=== PATIENT | female | born 1945 | race Caucasian/White ===

== ENCOUNTER 2017-11-29 21:30 | Observation (INO) | payer MEDICARE, OTHER ==
[2017-11-29] MEDS: ASPIRIN 81 MG TAB PO (21:41)
[2017-11-29 21:55] LABS: ADD MAN DIFF? NO
[2017-11-29 21:57] LABS: BASOPHILS % 0.5 % (0.0-2.0); EOSINOPHILS # 0.1 10^3/ul (0.0-0.5); EOSINOPHILS % 1.6 % (0.0-7.0); HEMATOCRIT 35.7 % (37.0-47.0); HEMOGLOBIN 11.6 g/dl (12.0-16.0); LYMPHOCYTES # 2.7 10^3/ul (0.8-2.9); LYMPHOCYTES % 33.5 % (15.0-51.0); MEAN CORPUSCULAR HGB CONC 32.5 g/dl (32.0-37.0); MEAN CORPUSCULAR VOLUME 98.6 fl (82.0-101.0); MONOCYTE # 0.9 10^3/ul (0.3-0.9); MONOCYTES % 11.9 % (0.0-11.0); NEUTROPHIL # 4.1 10^3/ul (1.6-7.5); NEUTROPHILS % 51.9 % (39.0-77.0); PLATELET COUNT 167 10^3/UL (140-415); RED BLOOD COUNT 3.62 10^6/ul (4.20-5.40); RED CELL DISTRIBUTION WIDTH 13.2 % (11.5-14.5)
[2017-11-29 21:57] LABS: WHITE BLOOD COUNT 7.9 10^3/ul (4.8-10.8)
[2017-11-29 22:15] LABS: ANION GAP 17 (8-16); BLOOD UREA NITROGEN 22 mg/dl (7-20); CALCIUM 9.2 mg/dl (8.4-10.2); CARBON DIOXIDE 22 mmol/L (21-31); CHLORIDE 108 mmol/L (97-110); CREATININE 1.03 mg/dl (0.44-1.00); GLUCOSE 112 mg/dl (70-220); POTASSIUM 4.7 mmol/L (3.5-5.1); SODIUM 142 mmol/L (135-144)
[2017-11-29 22:23] LABS: D-DIMER 653.79 ng/ml (<460)
[2017-11-29 22:30] LABS: TROPONIN-I < 0.012 ng/ml (0.00-0.12)
[2017-11-30] MEDS ORDERED: LORAZEPAM 0.5 MG TAB PO
[2017-11-30] MEDS ORDERED: HYDROmorphONE 0.5 MG/0.5 ML SYG IV
[2017-11-30] MEDS ORDERED: DOCUSATE SODIUM 100 MG CAP PO ×2
[2017-11-30] MEDS ORDERED: HYDROCODONE/APAP (5/325) TAB PO
[2017-11-30] MEDS ORDERED: ZOLPIDEM 5 MG TAB PO
[2017-11-30] MEDS ORDERED: NITROGLYCERIN (SL) 0.4 MG TAB SL
[2017-11-30] MEDS ORDERED: MAGNESIUM HYDROXIDE 30ML CUP PO
[2017-11-30] MEDS ORDERED: ONDANSETRON 4 MG INJ IV ×2
[2017-11-30] MEDS ORDERED: NACL 0.9% 3 ML SYG IV
[2017-11-30] MEDS ORDERED: ACETAMINOPHEN 325 MG TAB PO ×2
[2017-11-30] MEDS ORDERED: ALBUTEROL/IPRATROPIUM (NEB) 3 ML AMP HHN (00:30)
[2017-11-30] MEDS: SOD CHLORIDE 0.9% 100 ML (00:55)
[2017-11-30] MEDS: IOHEXOL 100 ML (00:55)
[2017-11-30] MEDS: IOHEXOL 350MG/ML 50 ML BTL (00:55)
[2017-11-30] MEDS: ALBUTEROL/IPRATROPIUM (NEB) 3 ML AMP HHN ×6 (01:11→20:29)
[2017-11-30] MEDS: PANTOPRAZOLE (EC) 40 MG TAB PO (06:30)
[2017-11-30 07:23] LABS: ADD MAN DIFF? NO
[2017-11-30 07:26] LABS: BASOPHILS % 0.6 % (0.0-2.0); EOSINOPHILS # 0.1 10^3/ul (0.0-0.5); EOSINOPHILS % 1.9 % (0.0-7.0); HEMATOCRIT 31.9 % (37.0-47.0); HEMOGLOBIN 10.5 g/dl (12.0-16.0); LYMPHOCYTES % 31.4 % (15.0-51.0); MEAN CORPUSCULAR HEMOGLOBIN 32.3 pg (29.0-33.0); MEAN CORPUSCULAR HGB CONC 32.9 g/dl (32.0-37.0); MEAN CORPUSCULAR VOLUME 98.2 fl (82.0-101.0); MEAN PLATELET VOLUME 11.1 fl (7.4-10.4); MONOCYTE # 0.7 10^3/ul (0.3-0.9); MONOCYTES % 11.5 % (0.0-11.0); NEUTROPHIL # 3.5 10^3/ul (1.6-7.5); NEUTROPHILS % 54.1 % (39.0-77.0); PLATELET COUNT 158 10^3/UL (140-415); RED BLOOD COUNT 3.25 10^6/ul (4.20-5.40); RED CELL DISTRIBUTION WIDTH 13.3 % (11.5-14.5)
[2017-11-30 07:26] LABS: WHITE BLOOD COUNT 6.5 10^3/ul (4.8-10.8)
[2017-11-30 07:49] LABS: CREATINE KINASE 22 IU/L (23-200)
[2017-11-30 07:50] LABS: CHOL/HDL RATIO 2.4 RATIO; HDL CHOLESTEROL 45 mg/dl (33-92); LDL CHOLESTEROL,CALCULATED 28 mg/dl; TRIGLYCERIDES 193 mg/dl (0-149)
[2017-11-30 07:50] LABS: CHOLESTEROL 112 mg/dl (100-200)
[2017-11-30 07:52] LABS: ALANINE AMINOTRANSFERASE 20 IU/L (13-69); ALBUMIN/GLOBULIN RATIO 1.03; ALKALINE PHOSPHATASE 61 IU/L (42-121); ANION GAP 13 (8-16); ASPARTATE AMINO TRANSFERASE 10 IU/L (15-46); BLOOD UREA NITROGEN 21 mg/dl (7-20); CARBON DIOXIDE 26 mmol/L (21-31); CHLORIDE 109 mmol/L (97-110); GLUCOSE 75 mg/dl (70-220); POTASSIUM 4.2 mmol/L (3.5-5.1); SODIUM 144 mmol/L (135-144); TOTAL PROTEIN 5.9 g/dl (6.1-8.1)
[2017-11-30 08:00] LABS: CK-MB 0.23 ng/ml (0.0-2.4)
[2017-11-30 08:00] LABS: HEMOGLOBIN A1C 5.3 % (0-5.9)
[2017-11-30 08:01] LABS: TROPONIN-I < 0.012 ng/ml (0.00-0.12)
[2017-11-30] MEDS: ASPIRIN 81 MG TAB PO (08:16)
[2017-11-30] MEDS: AMLODIPINE 5 MG TAB PO (08:17)
[2017-11-30] MEDS: VALSARTAN 160 MG TAB PO (08:18)
[2017-11-30] MEDS: ENOXAPARIN 40 MG/0.4 ML SYG SC (08:25)
[2017-11-30] MEDS: LEVOTHYROXINE 150 MCG TAB PO (09:50)
[2017-11-30] MEDS: GABAPENTIN 400 MG CAP PO ×3 (09:50→21:49)
[2017-11-30] MEDS: CARBIDOPA/LEVODOPA (25/100) TAB PO ×3 (09:51→21:49)
[2017-11-30] MEDS: FENOFIBRATE 145 MG TAB PO (09:51)
[2017-11-30] MEDS: DIVALPROEX (EC) 500 MG TAB PO ×2 (09:51→21:49)
[2017-11-30] MEDS: CHOLESTYRAMINE 4 GM PACKET PO ×3 (09:52→21:49)
[2017-11-30] MEDS: ANASTROZOLE 1 MG TAB PO (10:28)
[2017-11-30 12:11] LABS: ADD UMIC NO; UR ASCORBIC ACID NEGATIVE (NEGATIVE); UR BILIRUBIN (Dip) NEGATIVE (NEGATIVE); UR BLOOD (Dip) NEGATIVE (NEGATIVE); UR CLARITY CLEAR (CLEAR); UR COLOR STRAW (YELLOW); UR GLUCOSE (Dip) NEGATIVE (NEGATIVE); UR KETONES (Dip) NEGATIVE (NEGATIVE); UR LEUKOCYTE ESTERASE (Dip) NEGATIVE Leu/ul (NEGATIVE); UR NITRITE (Dip) NEGATIVE (NEGATIVE); UR SPECIFIC GRAVITY (Dip) 1.021 (1.003-1.030); UR TOTAL PROTEIN (Dip) NEGATIVE (NEGATIVE); UR UROBILINOGEN (Dip) NEGATIVE (NEGATIVE)
[2017-11-30] MEDS: OXYBUTYNIN 5 MG TAB PO ×2 (12:45→21:49)
[2017-11-30] MEDS: FLUTICASONE 0.05% 16 GM NAS SPRAY NASAL (12:45)
[2017-11-30] MEDS: ARTIFICIAL TEARS 15 ML OPH BOTH EYES ×3 (12:46→21:49)
[2017-11-30 12:53] LABS: CREATINE KINASE 21 IU/L (23-200)
[2017-11-30 13:03] LABS: CK-MB < 0.22 ng/ml (0.0-2.4); TROPONIN-I < 0.012 ng/ml (0.00-0.12)
[2017-11-30] MEDS: ACETAMINOPHEN 325 MG TAB PO (16:11)
[2017-11-30] MEDS: RISPERIDONE 2 MG TAB PO (21:50)
[2017-12-01] MEDS: ALBUTEROL/IPRATROPIUM (NEB) 3 ML AMP HHN ×6 (01:27→20:44)
[2017-12-01] MEDS: PANTOPRAZOLE (EC) 40 MG TAB PO (06:22)
[2017-12-01] MEDS: LEVOTHYROXINE 137 MCG TAB PO (06:22)
[2017-12-01 07:51] LABS: RETICULOCYTE RBC 3.24
[2017-12-01 07:51] LABS: RETICULOCYTE COUNT # 0.045 X10^6 (0.020-0.110); RETICULOCYTE COUNT % 1.4 % (0.5-1.5)
[2017-12-01 08:17] LABS: IRON 64 ug/dl (35-150)
[2017-12-01 08:26] LABS: % IRON SATURATION 23 % SAT (22-52); TOTAL IRON BINDING CAPACITY 283 ug/dl (241-421)
[2017-12-01 08:32] LABS: OCCULT BLOOD STOOL NEGATIVE (NEGATIVE)
[2017-12-01] MEDS: GABAPENTIN 400 MG CAP PO ×3 (08:37→20:57)
[2017-12-01] MEDS: VALSARTAN 160 MG TAB PO (08:38)
[2017-12-01] MEDS: AMLODIPINE 5 MG TAB PO (08:38)
[2017-12-01] MEDS: FENOFIBRATE 145 MG TAB PO (08:42)
[2017-12-01] MEDS: ANASTROZOLE 1 MG TAB PO (08:42)
[2017-12-01] MEDS: DIVALPROEX (EC) 500 MG TAB PO ×2 (08:42→20:57)
[2017-12-01] MEDS: CARBIDOPA/LEVODOPA (25/100) TAB PO ×3 (08:43→20:57)
[2017-12-01] MEDS: OXYBUTYNIN 5 MG TAB PO ×3 (08:43→20:57)
[2017-12-01] MEDS: ASPIRIN 81 MG TAB PO (08:43)
[2017-12-01] MEDS: CHOLESTYRAMINE 4 GM PACKET PO ×3 (08:43→20:56)
[2017-12-01] MEDS: ENOXAPARIN 40 MG/0.4 ML SYG SC (08:44)
[2017-12-01] MEDS: FLUTICASONE 0.05% 16 GM NAS SPRAY NASAL (08:49)
[2017-12-01 09:48] LABS: FOLATE 4.5 ng/ml (2.8-20.0)
[2017-12-01] MEDS: ARTIFICIAL TEARS 15 ML OPH BOTH EYES ×4 (12:25→20:56)
[2017-12-01] MEDS: REGADENOSON 0.4 MG/5 ML SYG IV (16:00)
[2017-12-01] MEDS: REGADENOSON 0.4 MG/5 ML SYG (16:06)
[2017-12-01] MEDS: RISPERIDONE 2 MG TAB PO (20:57)
[2017-12-01] MEDS: MUPIROCIN 2% 22 GM OINT TOP (20:57)
[2017-12-02] MEDS: ALBUTEROL/IPRATROPIUM (NEB) 3 ML AMP HHN ×4 (00:51→12:28)
[2017-12-02] MEDS: PANTOPRAZOLE (EC) 40 MG TAB PO (06:07)
[2017-12-02] MEDS: LEVOTHYROXINE 112 MCG TAB PO (06:07)
[2017-12-02] MEDS: LEVOTHYROXINE 25 MCG TAB PO (06:07)
[2017-12-02] MEDS: ARTIFICIAL TEARS 15 ML OPH BOTH EYES ×2 (08:44→12:35)
[2017-12-02] MEDS: DIVALPROEX (EC) 500 MG TAB PO (08:45)
[2017-12-02] MEDS: OXYBUTYNIN 5 MG TAB PO ×2 (08:45→12:36)
[2017-12-02] MEDS: ENOXAPARIN 40 MG/0.4 ML SYG SC (08:45)
[2017-12-02] MEDS: CARBIDOPA/LEVODOPA (25/100) TAB PO ×2 (08:45→12:36)
[2017-12-02] MEDS: ASPIRIN 81 MG TAB PO (08:46)
[2017-12-02] MEDS: GABAPENTIN 400 MG CAP PO ×2 (08:46→12:36)
[2017-12-02] MEDS: ANASTROZOLE 1 MG TAB PO (08:47)
[2017-12-02] MEDS: FENOFIBRATE 145 MG TAB PO (08:48)
[2017-12-02] MEDS: MUPIROCIN 2% 22 GM OINT TOP (08:48)
[2017-12-02] MEDS: CHOLESTYRAMINE 4 GM PACKET PO ×2 (08:48→12:36)
[2017-12-02] MEDS: VALSARTAN 160 MG TAB PO (08:50)
[2017-12-02] MEDS: FLUTICASONE 0.05% 16 GM NAS SPRAY NASAL (08:50)
[2017-12-02] MEDS: AMLODIPINE 5 MG TAB PO (08:50)
[2017-12-03] MEDS ORDERED: LEVOTHYROXINE 137 MCG TAB PO (07:00)
== END 2017-12-02 17:22 ==
LOC: MS4 23:59 → E/R 21:30
DX: R07.9 Chest pain, unspecified (principal); E03.9 Hypothyroidism, unspecified; G20 Parkinson's disease; J44.9 Chronic obstructive pulmonary disease, unspecified; I11.0 Hypertensive heart disease with heart failure; I50.30 Unspecified diastolic (congestive) heart failure; E78.5 Hyperlipidemia, unspecified; E66.9 Obesity, unspecified; Z68.34 Body mass index [BMI] 34.0-34.9, adult; F32.9 Major depressive disorder, single episode, unspecified; M19.90 Unspecified osteoarthritis, unspecified site; R19.7 Diarrhea, unspecified; D64.9 Anemia, unspecified; N32.81 Overactive bladder; I44.7 Left bundle-branch block, unspecified; Z85.3 Personal history of malignant neoplasm of breast; Z87.891 Personal history of nicotine dependence; Z79.82 Long term (current) use of aspirin; Z88.6 Allergy status to analgesic agent; Z88.8 Allergy status to other drugs, medicaments and biological substances; Z87.440 Personal history of urinary (tract) infections; Z83.3 Family history of diabetes mellitus; Z80.0 Family history of malignant neoplasm of digestive organs
CPT/HCPCS: 36415; 71045; 71275; 78452; 80048; 80053; 80061; 81003; 82270; 82550; 82553; 82607; 82746; 83036; 83540; 84443; 84484; 85025; 85045; 85378; 87081; 87086; 93005; 93017; 93306; 94640; 94660; 94664; 99285-25; G0378

== ENCOUNTER 2019-05-10 17:16 | Inpatient (IN) | payer MEDICARE, OTHER ==
[2019-05-10 18:31] LABS: ADD MAN DIFF? NO
[2019-05-10 18:36] LABS: BASOPHILS % 0.3 % (0.0-2.0); EOSINOPHILS # 0.3 10^3/ul (0.0-0.5); EOSINOPHILS % 3.5 % (0.0-7.0); HEMATOCRIT 33.7 % (37.0-47.0); HEMOGLOBIN 10.9 g/dl (12.0-16.0); LYMPHOCYTES # 2.3 10^3/ul (0.8-2.9); LYMPHOCYTES % 23.7 % (15.0-51.0); MEAN CORPUSCULAR HGB CONC 32.3 g/dl (32.0-37.0); MEAN CORPUSCULAR VOLUME 98.8 fl (82.0-101.0); MONOCYTE # 1.3 10^3/ul (0.3-0.9); MONOCYTES % 13.6 % (0.0-11.0); NEUTROPHIL # 5.6 10^3/ul (1.6-7.5); NEUTROPHILS % 58.4 % (39.0-77.0); PLATELET COUNT 192 10^3/UL (140-415); RED BLOOD COUNT 3.41 10^6/ul (4.20-5.40); RED CELL DISTRIBUTION WIDTH 12.6 % (11.5-14.5)
[2019-05-10 18:36] LABS: WHITE BLOOD COUNT 9.5 10^3/ul (4.8-10.8)
[2019-05-10 18:54] LABS: INR 1.17; PT RATIO 1.2
[2019-05-10 18:55] LABS: ALANINE AMINOTRANSFERASE 9 IU/L (13-69); ALBUMIN 3.2 g/dl (3.3-4.9); ALBUMIN/GLOBULIN RATIO 0.94; ALKALINE PHOSPHATASE 48 IU/L (42-121); ANION GAP 9 (5-13); ASPARTATE AMINO TRANSFERASE 17 IU/L (15-46); BILIRUBIN,INDIRECT 0.4 mg/dl (0-1.1); BILIRUBIN,TOTAL 0.4 mg/dl (0.2-1.3); BLOOD UREA NITROGEN 27 mg/dl (7-20); CALCIUM 9.1 mg/dl (8.4-10.2); CARBON DIOXIDE 27 mmol/L (21-31); CHLORIDE 108 mmol/L (97-110); CREATININE 1.03 mg/dl (0.44-1.00); GLUCOSE 107 mg/dl (70-220); PARTIAL THROMBOPLASTIN TIME 27.9 Sec (23.0-35.0); POTASSIUM 3.7 mmol/L (3.5-5.1); SODIUM 144 mmol/L (135-144); TOTAL PROTEIN 6.6 g/dl (6.1-8.1)
[2019-05-10 19:51] LABS: VALPROATE 57 ug/ml (50-100)
[2019-05-10 20:10] LABS: ADD UMIC YES; UR ASCORBIC ACID NEGATIVE (NEGATIVE); UR BACTERIA FEW /HPF (NONE SEEN); UR BILIRUBIN (Dip) NEGATIVE (NEGATIVE); UR BLOOD (Dip) 2+ mg/dL (NEGATIVE); UR CLARITY CLOUDY (CLEAR); UR COLOR YELLOW (YELLOW); UR GLUCOSE (Dip) NEGATIVE (NEGATIVE); UR KETONES (Dip) NEGATIVE (NEGATIVE); UR LEUKOCYTE ESTERASE (Dip) 3+ Leu/ul (NEGATIVE); UR NITRITE (Dip) NEGATIVE (NEGATIVE); UR NONSQUAMOUS EPITHELIAL CELL 2 /HPF (NONE SEEN); UR RBC 2 /HPF (0-5); UR SPECIFIC GRAVITY (Dip) 1.013 (1.003-1.030); UR SQUAMOUS EPITHELIAL CELL MODERATE /HPF (FEW); UR TOTAL PROTEIN (Dip) NEGATIVE (NEGATIVE); UR TRANSITIONAL EPI CELL FEW /HPF (NONE SEEN); UR UROBILINOGEN (Dip) NEGATIVE (NEGATIVE); UR WBC 76 /HPF (0-5)
[2019-05-10] MEDS: PIPER-TAZO 3.375 GM IV (PMX) 100 ML IVPB (20:31)
[2019-05-10] MEDS: SOD CHLORIDE 0.9% 1,000 ML IV (20:31)
[2019-05-10 20:41] LABS: LACTIC ACID 1.1 mmol/L (0.5-2.0)
[2019-05-10 20:52] LABS: THYROID STIMULATING HORMONE 0.067 MIU/L (0.465-4.680); TROPONIN-I < 0.012 ng/ml (0.000-0.120)
[2019-05-10 22:38] LABS: LACTIC ACID 1.4 mmol/L (0.5-2.0)
[2019-05-11] MEDS ORDERED: MAGNESIUM HYDROXIDE 30ML CUP PO
[2019-05-11] MEDS ORDERED: NACL 0.9% 3 ML SYG IV
[2019-05-11] MEDS ORDERED: morphine 2 MG INJ IV
[2019-05-11] MEDS ORDERED: ONDANSETRON 4 MG INJ IV
[2019-05-11] MEDS ORDERED: HYDROCODONE/APAP (5/325) TAB PO
[2019-05-11] MEDS ORDERED: ACETAMINOPHEN 325 MG TAB PO
[2019-05-11] MEDS ORDERED: DOCUSATE SODIUM 100 MG CAP PO
[2019-05-11] MEDS: ZOLPIDEM 5 MG TAB PO (00:20)
[2019-05-11] MEDS: GUAIFENESIN/DM 5ML CUP PO ×6 (00:20→20:33)
[2019-05-11] MEDS: SOD CHLORIDE 0.9% 1,000 ML IV (00:20)
[2019-05-11] MEDS: PANTOPRAZOLE (EC) 40 MG TAB PO (05:07)
[2019-05-11] MEDS: PIPER-TAZO 3.375 GM IV (PMX) 100 ML IVPB ×3 (05:08→22:29)
[2019-05-11 05:21] LABS: ADD MAN DIFF? NO
[2019-05-11 05:24] LABS: BASOPHILS % 0.3 % (0.0-2.0); EOSINOPHILS # 0.4 10^3/ul (0.0-0.5); EOSINOPHILS % 5.5 % (0.0-7.0); HEMATOCRIT 33.6 % (37.0-47.0); HEMOGLOBIN 10.8 g/dl (12.0-16.0); LYMPHOCYTES # 1.7 10^3/ul (0.8-2.9); LYMPHOCYTES % 25.2 % (15.0-51.0); MEAN CORPUSCULAR HEMOGLOBIN 31.7 pg (29.0-33.0); MEAN CORPUSCULAR HGB CONC 32.1 g/dl (32.0-37.0); MEAN CORPUSCULAR VOLUME 98.5 fl (82.0-101.0); MONOCYTE # 0.8 10^3/ul (0.3-0.9); MONOCYTES % 11.4 % (0.0-11.0); NEUTROPHILS % 57.2 % (39.0-77.0); PLATELET COUNT 182 10^3/UL (140-415); RED BLOOD COUNT 3.41 10^6/ul (4.20-5.40); RED CELL DISTRIBUTION WIDTH 12.4 % (11.5-14.5)
[2019-05-11 05:24] LABS: WHITE BLOOD COUNT 6.9 10^3/ul (4.8-10.8)
[2019-05-11 05:34] LABS: HEMOGLOBIN A1C 5.1 % (0-5.9)
[2019-05-11] MEDS: LEVOTHYROXINE 100 MCG TAB PO (06:06)
[2019-05-11 06:39] LABS: ALANINE AMINOTRANSFERASE 12 IU/L (13-69); ALBUMIN 2.8 g/dl (3.3-4.9); ALBUMIN/GLOBULIN RATIO 0.87; ALKALINE PHOSPHATASE 42 IU/L (42-121); ANION GAP 5 (5-13); ASPARTATE AMINO TRANSFERASE 14 IU/L (15-46); BILIRUBIN,INDIRECT 0.3 mg/dl (0-1.1); BILIRUBIN,TOTAL 0.3 mg/dl (0.2-1.3); BLOOD UREA NITROGEN 24 mg/dl (7-20); CALCIUM 8.2 mg/dl (8.4-10.2); CARBON DIOXIDE 26 mmol/L (21-31); CHLORIDE 113 mmol/L (97-110); CREATININE 1.05 mg/dl (0.44-1.00); GLUCOSE 109 mg/dl (70-220); POTASSIUM 3.7 mmol/L (3.5-5.1); SODIUM 144 mmol/L (135-144)
[2019-05-11] MEDS ORDERED: PANTOPRAZOLE (EC) 40 MG TAB PO (07:00)
[2019-05-11] MEDS: PSYLLIUM 28% PACKET PO (08:31)
[2019-05-11] MEDS: DICLOFENAC SODIUM 1% GEL 100 GM TUBE TP ×3 (08:32→20:35)
[2019-05-11] MEDS: BALSAM PERU/CASTOR OIL 60 GM TUBE TOP ×2 (08:32→20:34)
[2019-05-11] MEDS: FERROUS SULFATE (EC) 325 MG TAB PO ×2 (08:33→20:34)
[2019-05-11] MEDS: FLUTICASONE 0.05% 16 GM NAS SPRAY NASAL (08:33)
[2019-05-11] MEDS: ASPIRIN 81 MG TAB PO (08:33)
[2019-05-11] MEDS: AMLODIPINE 5 MG TAB PO ×2 (08:34→20:33)
[2019-05-11] MEDS: CHOLECALCIFEROL 1,000 UNIT TAB PO (08:34)
[2019-05-11] MEDS: GABAPENTIN 400 MG CAP PO ×3 (08:34→20:34)
[2019-05-11] MEDS: DIVALPROEX (EC) 500 MG TAB PO ×2 (08:34→20:34)
[2019-05-11] MEDS: CARBIDOPA/LEVODOPA (25/100) TAB PO ×3 (08:34→20:34)
[2019-05-11] MEDS: FOLIC ACID 1 MG TAB PO (08:35)
[2019-05-11] MEDS: ENOXAPARIN 40 MG/0.4 ML SYG SC (08:47)
[2019-05-11] MEDS: ANASTROZOLE 1 MG TAB PO (10:51)
[2019-05-11] MEDS: MUPIROCIN 2% 22 GM OINT TOP ×2 (13:37→20:34)
[2019-05-11] MEDS: PRIMIDONE 50 MG TAB PO (20:34)
[2019-05-11] MEDS: RISPERIDONE 1 MG TAB PO (20:34)
[2019-05-12 05:15] LABS: ADD MAN DIFF? NO
[2019-05-12 05:19] LABS: WHITE BLOOD COUNT 5.1 10^3/ul (4.8-10.8)
[2019-05-12 05:19] LABS: BASOPHILS % 0.4 % (0.0-2.0); EOSINOPHILS # 0.5 10^3/ul (0.0-0.5); EOSINOPHILS % 9.1 % (0.0-7.0); HEMATOCRIT 32.4 % (37.0-47.0); HEMOGLOBIN 10.3 g/dl (12.0-16.0); LYMPHOCYTES # 1.5 10^3/ul (0.8-2.9); LYMPHOCYTES % 30.3 % (15.0-51.0); MEAN CORPUSCULAR HEMOGLOBIN 31.6 pg (29.0-33.0); MEAN CORPUSCULAR HGB CONC 31.8 g/dl (32.0-37.0); MEAN CORPUSCULAR VOLUME 99.4 fl (82.0-101.0); MEAN PLATELET VOLUME 12.1 fl (7.4-10.4); MONOCYTE # 0.6 10^3/ul (0.3-0.9); MONOCYTES % 12.6 % (0.0-11.0); NEUTROPHIL # 2.4 10^3/ul (1.6-7.5); NEUTROPHILS % 46.8 % (39.0-77.0); PLATELET COUNT 194 10^3/UL (140-415); RED BLOOD COUNT 3.26 10^6/ul (4.20-5.40); RED CELL DISTRIBUTION WIDTH 12.1 % (11.5-14.5)
[2019-05-12 05:21] LABS: RETICULOCYTE RBC 3.17
[2019-05-12 05:21] LABS: RETICULOCYTE COUNT # 0.032 X10^6 (0.020-0.110)
[2019-05-12] MEDS: GUAIFENESIN/DM 5ML CUP PO ×7 (05:29→20:00)
[2019-05-12] MEDS: LEVOTHYROXINE 100 MCG TAB PO (05:29)
[2019-05-12] MEDS: PANTOPRAZOLE (EC) 40 MG TAB PO (05:29)
[2019-05-12] MEDS: PIPER-TAZO 3.375 GM IV (PMX) 100 ML IVPB ×3 (05:29→22:00)
[2019-05-12 05:38] LABS: PHOSPHORUS 3.1 mg/dl (2.5-4.9)
[2019-05-12 05:38] LABS: MAGNESIUM 1.9 mg/dl (1.7-2.5)
[2019-05-12 05:39] LABS: IRON 52 ug/dl (35-150)
[2019-05-12 05:41] LABS: ANION GAP 6 (5-13); BLOOD UREA NITROGEN 21 mg/dl (7-20); CALCIUM 8.6 mg/dl (8.4-10.2); CARBON DIOXIDE 27 mmol/L (21-31); CHLORIDE 114 mmol/L (97-110); CREATININE 1.02 mg/dl (0.44-1.00); GLUCOSE 97 mg/dl (70-220); POTASSIUM 3.7 mmol/L (3.5-5.1); SODIUM 147 mmol/L (135-144)
[2019-05-12 05:48] LABS: % IRON SATURATION 21 % SAT (22-52); TOTAL IRON BINDING CAPACITY 242 ug/dl (241-421)
[2019-05-12 06:46] LABS: FOLATE 16.7 ng/ml (2.8-20.0)
[2019-05-12 07:06] LABS: CARCINOEMBRYONIC ANTIGEN 0.7 ng/ml (0.0-5.0)
[2019-05-12] MEDS: PSYLLIUM 28% PACKET PO (09:00)
[2019-05-12] MEDS: MUPIROCIN 2% 22 GM OINT TOP ×2 (09:51→21:51)
[2019-05-12] MEDS: BALSAM PERU/CASTOR OIL 60 GM TUBE TOP ×2 (09:52→21:51)
[2019-05-12] MEDS: DICLOFENAC SODIUM 1% GEL 100 GM TUBE TP ×3 (09:52→21:51)
[2019-05-12] MEDS: ASPIRIN 81 MG TAB PO (09:54)
[2019-05-12] MEDS: DIVALPROEX (EC) 500 MG TAB PO ×2 (09:54→21:50)
[2019-05-12] MEDS: CHOLECALCIFEROL 1,000 UNIT TAB PO (09:54)
[2019-05-12] MEDS: CARBIDOPA/LEVODOPA (25/100) TAB PO ×3 (09:56→21:50)
[2019-05-12] MEDS: FERROUS SULFATE (EC) 325 MG TAB PO ×2 (09:56→21:50)
[2019-05-12] MEDS: ANASTROZOLE 1 MG TAB PO (09:56)
[2019-05-12] MEDS: GABAPENTIN 400 MG CAP PO ×3 (09:56→21:50)
[2019-05-12] MEDS: FOLIC ACID 1 MG TAB PO (09:56)
[2019-05-12] MEDS: AMLODIPINE 5 MG TAB PO ×2 (09:57→21:56)
[2019-05-12] MEDS: FLUTICASONE 0.05% 16 GM NAS SPRAY NASAL (09:57)
[2019-05-12] MEDS: ENOXAPARIN 40 MG/0.4 ML SYG SC (10:09)
[2019-05-12] MEDS: VANCOMYCIN HCL 250 MG/5ML POSYG PO ×3 (13:54→21:50)
[2019-05-12] MEDS: PRIMIDONE 50 MG TAB PO (21:50)
[2019-05-12] MEDS: RISPERIDONE 1 MG TAB PO (21:56)
[2019-05-12] MEDS: ACETAMINOPHEN 325 MG TAB PO (22:17)
[2019-05-13] MEDS: GUAIFENESIN/DM 5ML CUP PO ×6 (04:00→20:40)
[2019-05-13 05:35] LABS: ADD MAN DIFF? NO
[2019-05-13 05:41] LABS: WHITE BLOOD COUNT 5.7 10^3/ul (4.8-10.8)
[2019-05-13 05:41] LABS: BASOPHILS % 0.5 % (0.0-2.0); EOSINOPHILS # 0.4 10^3/ul (0.0-0.5); EOSINOPHILS % 7.6 % (0.0-7.0); HEMATOCRIT 33.1 % (37.0-47.0); HEMOGLOBIN 10.6 g/dl (12.0-16.0); LYMPHOCYTES # 2.1 10^3/ul (0.8-2.9); LYMPHOCYTES % 37.9 % (15.0-51.0); MEAN CORPUSCULAR HEMOGLOBIN 31.5 pg (29.0-33.0); MEAN CORPUSCULAR VOLUME 98.5 fl (82.0-101.0); MEAN PLATELET VOLUME 12.1 fl (7.4-10.4); MONOCYTE # 0.7 10^3/ul (0.3-0.9); MONOCYTES % 11.9 % (0.0-11.0); NEUTROPHIL # 2.3 10^3/ul (1.6-7.5); NEUTROPHILS % 40.5 % (39.0-77.0); PLATELET COUNT 205 10^3/UL (140-415); RED BLOOD COUNT 3.36 10^6/ul (4.20-5.40); RED CELL DISTRIBUTION WIDTH 12.1 % (11.5-14.5)
[2019-05-13 05:54] LABS: PHOSPHORUS 3.2 mg/dl (2.5-4.9)
[2019-05-13 05:54] LABS: MAGNESIUM 1.7 mg/dl (1.7-2.5)
[2019-05-13 05:57] LABS: ANION GAP 6 (5-13); BLOOD UREA NITROGEN 21 mg/dl (7-20); CALCIUM 8.8 mg/dl (8.4-10.2); CARBON DIOXIDE 28 mmol/L (21-31); CHLORIDE 113 mmol/L (97-110); CREATININE 0.98 mg/dl (0.44-1.00); GLUCOSE 88 mg/dl (70-220); POTASSIUM 3.8 mmol/L (3.5-5.1); SODIUM 147 mmol/L (135-144)
[2019-05-13] MEDS: LEVOTHYROXINE 100 MCG TAB PO (06:30)
[2019-05-13] MEDS: PIPER-TAZO 3.375 GM IV (PMX) 100 ML IVPB (06:30)
[2019-05-13] MEDS: PANTOPRAZOLE (EC) 40 MG TAB PO (06:30)
[2019-05-13] MEDS: PSYLLIUM 28% PACKET PO (09:00)
[2019-05-13] MEDS: ASPIRIN 81 MG TAB PO (09:48)
[2019-05-13] MEDS: DIVALPROEX (EC) 500 MG TAB PO ×2 (09:48→20:40)
[2019-05-13] MEDS: CHOLECALCIFEROL 1,000 UNIT TAB PO (09:48)
[2019-05-13] MEDS: FOLIC ACID 1 MG TAB PO (09:49)
[2019-05-13] MEDS: AMLODIPINE 5 MG TAB PO ×2 (09:49→20:41)
[2019-05-13] MEDS: VANCOMYCIN HCL 250 MG/5ML POSYG PO ×4 (09:49→20:40)
[2019-05-13] MEDS: GABAPENTIN 400 MG CAP PO ×3 (09:49→20:40)
[2019-05-13] MEDS: CARBIDOPA/LEVODOPA (25/100) TAB PO ×3 (09:49→20:40)
[2019-05-13] MEDS: FERROUS SULFATE (EC) 325 MG TAB PO ×2 (09:49→20:40)
[2019-05-13] MEDS: BALSAM PERU/CASTOR OIL 60 GM TUBE TOP ×2 (09:50→20:42)
[2019-05-13] MEDS: FLUTICASONE 0.05% 16 GM NAS SPRAY NASAL (09:50)
[2019-05-13] MEDS: MUPIROCIN 2% 22 GM OINT TOP ×2 (09:50→20:41)
[2019-05-13] MEDS: DICLOFENAC SODIUM 1% GEL 100 GM TUBE TP ×3 (09:50→20:42)
[2019-05-13] MEDS: ANASTROZOLE 1 MG TAB PO (09:52)
[2019-05-13] MEDS: ENOXAPARIN 40 MG/0.4 ML SYG SC (09:52)
[2019-05-13 13:59] LABS: OCCULT BLOOD STOOL NEGATIVE (NEGATIVE)
[2019-05-13] MEDS: PRIMIDONE 50 MG TAB PO (20:40)
[2019-05-13] MEDS: RISPERIDONE 1 MG TAB PO (20:40)
[2019-05-14] MEDS: GUAIFENESIN/DM 5ML CUP PO ×5 (00:37→17:24)
[2019-05-14 06:25] LABS: ADD UMIC NO; UR ASCORBIC ACID NEGATIVE (NEGATIVE); UR BILIRUBIN (Dip) NEGATIVE (NEGATIVE); UR BLOOD (Dip) NEGATIVE (NEGATIVE); UR CLARITY CLEAR (CLEAR); UR COLOR STRAW (YELLOW); UR GLUCOSE (Dip) NEGATIVE (NEGATIVE); UR KETONES (Dip) NEGATIVE (NEGATIVE); UR LEUKOCYTE ESTERASE (Dip) NEGATIVE Leu/ul (NEGATIVE); UR NITRITE (Dip) NEGATIVE (NEGATIVE); UR SPECIFIC GRAVITY (Dip) 1.005 (1.003-1.030); UR TOTAL PROTEIN (Dip) NEGATIVE (NEGATIVE); UR UROBILINOGEN (Dip) NEGATIVE (NEGATIVE)
[2019-05-14] MEDS: LEVOTHYROXINE 100 MCG TAB PO (06:55)
[2019-05-14] MEDS: PANTOPRAZOLE (EC) 40 MG TAB PO (06:55)
[2019-05-14] MEDS: FERROUS SULFATE (EC) 325 MG TAB PO (08:47)
[2019-05-14] MEDS: VANCOMYCIN HCL 250 MG/5ML POSYG PO ×3 (08:47→17:24)
[2019-05-14] MEDS: CARBIDOPA/LEVODOPA (25/100) TAB PO ×2 (08:47→12:40)
[2019-05-14] MEDS: FOLIC ACID 1 MG TAB PO (08:48)
[2019-05-14] MEDS: ASPIRIN 81 MG TAB PO (08:48)
[2019-05-14] MEDS: CHOLECALCIFEROL 1,000 UNIT TAB PO (08:50)
[2019-05-14] MEDS: GABAPENTIN 400 MG CAP PO ×2 (08:50→12:40)
[2019-05-14] MEDS: AMLODIPINE 5 MG TAB PO (08:50)
[2019-05-14] MEDS: DIVALPROEX (EC) 500 MG TAB PO (08:50)
[2019-05-14] MEDS: ENOXAPARIN 40 MG/0.4 ML SYG SC (08:52)
[2019-05-14] MEDS: BALSAM PERU/CASTOR OIL 60 GM TUBE TOP (08:53)
[2019-05-14] MEDS: ANASTROZOLE 1 MG TAB PO (08:53)
[2019-05-14] MEDS: FLUTICASONE 0.05% 16 GM NAS SPRAY NASAL (08:53)
[2019-05-14] MEDS: DICLOFENAC SODIUM 1% GEL 100 GM TUBE TP ×2 (08:54→12:41)
[2019-05-14] MEDS: MUPIROCIN 2% 22 GM OINT TOP (08:58)
[2019-05-14] MEDS: PSYLLIUM 28% PACKET PO (08:59)
[2019-05-14] MEDS: ACETAMINOPHEN 325 MG TAB PO (18:59)
== END 2019-05-14 20:10 | DRG 689 ==
LOC: E/R 17:16 → 2NE 20:41
DX: N30.00 Acute cystitis without hematuria (principal); G92 Toxic encephalopathy; E44.1 Mild protein-calorie malnutrition; A04.72 Enterocolitis due to Clostridium difficile, not specified as recurrent; I50.32 Chronic diastolic (congestive) heart failure; E87.1 Hypo-osmolality and hyponatremia; I11.0 Hypertensive heart disease with heart failure; J44.9 Chronic obstructive pulmonary disease, unspecified; G20 Parkinson's disease; E86.0 Dehydration; E03.9 Hypothyroidism, unspecified; R21 Rash and other nonspecific skin eruption; G62.9 Polyneuropathy, unspecified; E78.5 Hyperlipidemia, unspecified; E66.9 Obesity, unspecified; I44.7 Left bundle-branch block, unspecified; B96.20 Unspecified Escherichia coli [E. coli] as the cause of diseases classified elsewhere; B96.1 Klebsiella pneumoniae [K. pneumoniae] as the cause of diseases classified elsewhere; D50.9 Iron deficiency anemia, unspecified; M19.012 Primary osteoarthritis, left shoulder; M19.011 Primary osteoarthritis, right shoulder; M17.0 Bilateral primary osteoarthritis of knee; G89.29 Other chronic pain; F32.9 Major depressive disorder, single episode, unspecified; F41.9 Anxiety disorder, unspecified; Z85.3 Personal history of malignant neoplasm of breast; Z79.82 Long term (current) use of aspirin; Z87.891 Personal history of nicotine dependence; Z91.81 History of falling
CPT/HCPCS: 70450; 71045; 72125; 73630; 76775; 80048; 80053; 80164; 81001; 81003; 82270; 82378; 82607; 82746; 83036; 83540; 83605; 83735; 84100; 84443; 84484; 85025; 85045; 85610; 85730; 87040-91; 87045; 87075; 87081; 87086; 93005; 93306; 96374; 97110; 97163; 97530; 99285-25